=== PATIENT | female | born 2000 | race Caucasian/White ===

== ENCOUNTER 2025-02-18 14:27 | Emergency (ER) | payer SELFPAY ==
[2025-02-18 14:40] VITALS: BP 149/104; PULSE 119; RESP 16; TEMP 36.2; O2SAT 99
[2025-02-18 16:11] VITALS: BP 175/114; PULSE 90; RESP 16; O2SAT 100
--- NOTE | 2025-02-18 16:33 | ED_ITS ---
HPI - Wound/Laceration General Chief Complaint: Wound/Laceration Stated Complaint: Laceration to left hand Time Seen by Provider: 02/18/25 16:10 History of Present Illness HPI narrative: 24-year-old otherwise healthy female presenting to the emergency department for left index finger/hand laceration. Patient states that she was cleaning her mantle when she accidentally dropped 1 other Decadron of sorts and she tried to catch it. She sustained a small 2 cm laceration over the radial aspect 1st finger just proximally to the MCP joint near the palm. She lost sensation in the radial aspect of that index finger but the distal tip is intact as well as the radial ulnar aspect. She has full range of motion of the MCP PIP and D IP joint. No other injury and no active bleeding. She is not sure if her tetanus is up today. Did not take anything for pain prior to arrival. No known allergies. No other anesthesia paresthesias, no other symptoms or injury at this time Related Data Allergies Allergy/AdvReac Type Severity Reaction Status Date / Time No Known Allergies Allergy Verified 02/18/25 16:15 Review of Systems Review of Systems: As reviewed above in HPI Exam Narrative: GENERAL: [Well-appearing, well-nourished, and in no acute distress.] HEAD: [Normocephalic, atraumatic.] EYES: [PERRLA and EOMI.] ENT: Nares clear, no rhinorrhea or epistaxis. Mucous membranes moist. NECK: Supple. CHEST: [Clear to auscultation. No respiratory distress.] HEART: [Regular rate and rhythm]. No murmur heard. [Normal peripheral pulses.] ABDOMEN: [Soft, nondistended], [nontender], [No rigidity or guarding] EXTREMITIES: Normal range of motion. [No edema.] SKIN: 2.0 cm linear laceration over the radial aspect palmar surface just proximal to the 1st MCP joint, no active bleeding, exposed musculature but no deep tendon involvement or active bleeding. Full range of motion at the MCP PIP and D IP joint including full flexion and extension. Good senior manager creative services strength, radial aspect has some anesthesia just distal to the wound on the radial aspect only and not involving the ulnar aspect or distal finger tip. Not affecting any motor function. NEURO: [No focal deficits]. Alert and oriented [x3.] PSYCH: [Normal mood and affect.] Course Vital Signs Vital signs: Vital Signs Temperature 36.2 C L 02/18/25 14:40 Pulse Rate 119 H 02/18/25 14:40 Respiratory Rate 16 02/18/25 14:40 Blood Pressure 149/104 H 02/18/25 14:40 Pulse Oximetry 99 02/18/25 14:40 Oxygen Delivery Room Air 02/18/25 14:40 Temperature 36.2 C L 02/18/25 14:40 Pulse Rate 89 02/18/25 17:37 Respiratory Rate 17 02/18/25 17:37 Blood Pressure 129/90 02/18/25 17:37 Pulse Oximetry 100 02/18/25 17:37 Oxygen Delivery Room Air 02/18/25 14:40 Procedures Laceration Laceration 1: Date: 02/18/25 Time: 17:35 Site: hand Side (If applicable): left Size (cm): 2.0 Description: linear and clean Depth: simple, single layer Local Anesthetic: lidocaine 2% and with epi Amount of anesthesia used (mL): 5 Pre-repair: wound explored and irrigated extensively ====== Skin Level ====== Skin layer closed with: nylon Size (cm): 5-0 Number of sutures: 8 Technique: simple, interrupted ====== Subcutaneous Layer ====== ====== Muscle Layer ====== ====== Tendon Layer ====== Dressing: Non adherent dressing with gauze applied over top. MDM - Wound/Laceration MDM Narrative Medical decision making narrative: 24-year-old female presenting with a hand laceration. Tetanus will need to be updated. Clean wound and irrigated extensively. Patient was provide [place] for analgesia. Wound evaluated shows 2.0 cm linear laceration over the radial aspect palmar surface just proximal to the 1st MCP joint, no active bleeding, exposed musculature but no deep tendon involvement or active bleeding. Full range of motion at the MCP PIP and D IP joint including full flexion and extension. Good senior manager creative services strength, radial aspect has some anesthesia just distal to the wound on the radial aspect only and not involving the ulnar aspect or distal finger tip. Not affecting any motor function. Suspect that patient may have cut 1 of the sensory nerves in this area but not affecting any motor function which is reassuring. Repair was completed with single air of Ethilon 5-0 suture after appropriate anesthesia achieved with lidocaine with epinephrine. Positions wound was bandaged and she was safely discharged with return instructions for wound check and suture removal. Medical Records Attestation: I reviewed the patient's medical records. Discharge Plan Discharge Clinical Impression: Laceration of hand, left Patient Disposition: Home Condition: Stable Instructions: Antibiotic Form, Care For Your Stitches (ED), Laceration (DC), Finger Laceration (ED) Additional Instructions: Follow-up in 10-14 days for wound check and suture removal. If he noticed any purulent drainage, increased pain or swelling, developing fevers return to the emergency department. Take Tylenol and ibuprofen for any aches or pains. Expect small amount of scant oozing for the next several days while the wound is healing but should not have any hemorrhage or purulent drainage. Patient Language: Frisian Follow-up/Referrals: PHYSICIAN,RAIL SWITCH OPERATOR [Primary Care Provider] - Time of Disposition: 17:53
[2025-02-18] MEDS: HYDROcodone/acetaminophen (*CRX) 5-325 MG TABLET 1 TAB PO (16:41)
[2025-02-18] MEDS: TETANUS,DIPHTHERIA,AC PERTUSSIS ADULT (0.5 ML) BOOSTRIX IM (16:42)
[2025-02-18 17:37] VITALS: BP 129/90; PULSE 89; RESP 17; O2SAT 100
[2025-02-18 18:04] VITALS: BP 151/100; PULSE 109; RESP 13; TEMP 36.6; O2SAT 100
== END 2025-02-18 18:08 | disposition home or self-care (01) ==
PROVIDERS: Emergency Provider Student in an Organized Health Care Education/Training Program
DX: S61.412A Laceration without foreign body of left hand, initial encounter (principal); W45.8XXA Other foreign body or object entering through skin, initial encounter; Z23 Encounter for immunization
CPT/HCPCS: 12001; 90471; 90715; 99283; A9270; J2004